=== PATIENT | female | born 1950 | race Caucasian/White ===

== ENCOUNTER 2020-12-22 13:20 | Outpatient (REF) | payer MEDICARE, MEDICAID, SELFPAY ==
[2020-12-22 13:10] LABS: Hematocrit 42.1 % (37-47); Hemoglobin 13.1 g/dl (12.0-16.0); Mean Corpuscular HGB Conc 31.1 g/dl (31.0-35.0); Mean Corpuscular Hemoglobin 27.3 pg (27.0-33.0); Mean Corpuscular Volume 87.9 fL (80-98); Mean Platelet Volume 10.1 fL (9.4-12.3); Platelet Count 114 X10*3/uL (160-400); Red Blood Count 4.79 X10*6/uL (4.20-5.50); Red Cell Distribution Width 14.5 % (11.0-16.0); White Blood Count 5.4 X10*3/uL (4.8-10.8)
[2020-12-22 13:15] LABS: INTERNATIONAL NORM RATIO 1.8 (0.9-1.1)
[2020-12-22 13:30] LABS: Alanine Aminotransferase 15 U/L (0-31); Albumin Level 3.3 g/dL (3.5-5.0); Alkaline Phosphatase 111 U/L (39-117); Anion Gap 10 (12-20); Aspartate Amino Transferase 20 U/L (5-31); Bilirubin Total 0.7 mg/dL (0.0-1.0); Blood Urea Nitrogen 13 mg/dL (9-16); Calcium 8.7 mg/dL (8.4-10.2); Carbon Dioxide 30 mmol/L (22-29); Chloride 108 mmol/L (96-108); Cholesterol 147 mg/dL; Estimated Glomerular Filt Rate > 60; Glucose Fasting 88 mg/dL (60-99); HDL Cholesterol 35 mg/dL; LDL Cholesterol Calculated 94 mg/dl; Potassium 4.1 mmol/L (3.3-5.1); Sodium 144 mmol/L (135-145); Total Protein 6.2 g/dL (6.5-8.0); Triglycerides 92 mg/dL
[2020-12-22 13:50] LABS: TSH reflex Free T4 2.64 uIU/mL (0.32-4.0)
== END 2020-12-22 13:21 | disposition home or self-care (01) ==
LOC: HO.LHD 13:20
PROVIDERS: Internal Medicine; Visit Provider Internal Medicine
DX: Z00.00 Encounter for general adult medical examination without abnormal findings (principal); I10 Essential (primary) hypertension; J45.909 Unspecified asthma, uncomplicated; Z79.01 Long term (current) use of anticoagulants
CPT/HCPCS: 36415; 80053; 80061; 84443; 85027; 85610

== ENCOUNTER 2021-01-04 | Outpatient (REF) | payer MEDICARE, MEDICAID, SELFPAY ==
[2021-01-04 11:09] LABS: INTERNATIONAL NORM RATIO 2.2 (0.9-1.1); Prothrombin Time 25.3 SEC (9.9-13.0)
== END 2021-01-04 00:01 | disposition home or self-care (01) ==
LOC: HO.LHD
PROVIDERS: Visit Provider Internal Medicine
DX: I26.99 Other pulmonary embolism without acute cor pulmonale (principal)
CPT/HCPCS: 36415; 85610

== ENCOUNTER 2021-01-18 13:45 | Outpatient (REF) | payer MEDICARE, MEDICAID, SELFPAY ==
[2021-01-18 11:03] LABS: INTERNATIONAL NORM RATIO 2.4 (0.9-1.1); Prothrombin Time 28.2 SEC (9.9-13.0)
== END 2021-01-18 13:46 | disposition home or self-care (01) ==
LOC: HO.LHD 13:45
PROVIDERS: Visit Provider Internal Medicine
DX: Z13.89 Encounter for screening for other disorder (principal)
CPT/HCPCS: 36415; 85610